=== PATIENT | male | born 1990 | race Asian ===

== ENCOUNTER 2020-07-01 22:21 | Emergency (ER) | payer OTHER ==
[~2020-07-01] VITALS: Ht 172.7 cm; Wt 77.7 kg
[2020-07-01 22:38] VITALS: BP 156/87; TEMP 97.8
[2020-07-01] MEDS ORDERED: FLONASE NASAL S16 GM NS (23:10)
[2020-07-01 23:17] VITALS: PULSE 65
== END 2020-07-01 23:17 | disposition home or self-care (01) ==
LOC: COL.ER 22:21
DX: H93.12 Tinnitus, left ear (principal); J30.2 Other seasonal allergic rhinitis